=== PATIENT | female | born 1940 | race Caucasian/White ===

== ENCOUNTER 2016-11-29 07:00 | Day surgery (SDC) | payer OTHER ==
[~2016-11-29] VITALS: Ht 168.9 cm; Wt 80.3 kg
[~2016-11-29 07:00] MED LIST: ADVAIR 100/501 DISK IH; CALCIUM 600+D1 EACH PO; CALCIUM CITRAT1 EA14 PO; CALCIUM CITRAT200 MG PO; CALTRATE 600600 MG PO; CIPRO500 MG PO; COMPAZINE10 MG PO; CYCLOBENZAPRINE10 MG PO; DOXYCYCLINE HY100 MG PO; DYAZIDE, MA1 CAPSULE PO; ENOXAPARIN60 MG/0.6 SC; FISH OIL300 MG PO; FOLIC ACID1 MG PO; HYDROCHLOROTH12.5 M3 PO; HYDROCHLOROTHIA25 MG PO; KADIAN30 MG PO; MELATONIN10 M1 PO; MELATONIN10 M2 PO; METOCLOPRAMIDE H5 MG PO; MIRALAX255 GM PO; MORPHINE PAIN PUMP; MORPHINE S10 MG/5 ML PO; MORPHINE SULFAT15 M1 PO; MORPHINE SULFAT60 MG PO; MS CONTIN,ORAMO60 MG PO; NASONEX17 GM BOTH NARES; ONDANSETRON ODT8 MG PO; PACLITAXEL6 MG/1 ML IV; PAXIL10 MG PO; PAXIL20 MG PO; PAXIL30 MG PO; PERI-COLACE TA1 EACH PO; POTASSIUM GLUCO2 MEQ PO; PRILOSEC40 MG PO; PROAIR HFA8.5 GM IH; PROBIOTIC250 MG PO; PROCHLORPERAZIN10 MG PO; REGLAN10 MG PO; SENNA-TIME S T1 EACH PO; SENOKOT S,PE1 TABLET PO; SYMBICORT60 INHALA1 IH; SYMBICORT60 INHALAT IH; TUMERIC PO; VIBRAMYCIN100 MG PO; VITAMIN D-32000 UNI1 PO; VITAMIN D10000 UNIT PO; WARFARIN SODIU2.5 MG PO; WARFARIN SODIUM5 MG PO; ZYRTEC10 M3 PO; [UNRECOGNIZED DRUG - OTHER] EPID
[2016-11-29] MEDS ORDERED: CYCLOBENZAPRINE10 MG PO (07:19)
[2016-11-29] MEDS ORDERED: PROBIOTIC1 EAC1 PO (11:21)
== END 2016-11-29 09:12 | disposition home or self-care (01) ==
LOC: CATH 07:00
DX: I87.8 Other specified disorders of veins (principal); C34.90 Malignant neoplasm of unspecified part of unspecified bronchus or lung; E78.5 Hyperlipidemia, unspecified; M19.90 Unspecified osteoarthritis, unspecified site; Z87.891 Personal history of nicotine dependence; Z88.2 Allergy status to sulfonamides; Z88.8 Allergy status to other drugs, medicaments and biological substances; Z83.3 Family history of diabetes mellitus; Z82.49 Family history of ischemic heart disease and other diseases of the circulatory system; Z82.3 Family history of stroke; Z80.3 Family history of malignant neoplasm of breast; Z80.0 Family history of malignant neoplasm of digestive organs
CPT/HCPCS: C1751; C1894; J0690; J1644; J2250; J3010; S0020

== ENCOUNTER 2017-03-03 19:27 | Inpatient (IN) | payer OTHER ==
[~2017-03-03] VITALS: Ht 170.2 cm; Wt 80.0 kg
[~2017-03-03 19:27] MED LIST changes: +DELTASONE20 M1 PO; +PAROXETINE HCL30 MG PO; +PREDNISONE5 MG PO; +PROBIOTIC1 EAC1 PO
[2017-03-03 20:33] LABS: HEMATOCRIT 30.9 % (36.0-46.0); MCH 28.6 PG (29.0-34.0); MCHC 31.4 G/DL (30.0-36.0); MEAN PLAT.VOLUME 8.9 uM^3 (9.5-12.4); PLATELET COUNT 313 K/uL (156-360); RBC DIS.WIDTH-CV 24.8 % (11.8-14.6); RBC DIS.WIDTH-SD 81.5 % (39-53); RED BLOOD COUNT 3.39 M/uL (3.80-5.20)
[2017-03-03 20:36] LABS: CARBON DIOXIDE (BICARBONATE) 28.5 MEQ/L (20-31)
[2017-03-03 20:46] LABS: CHLORIDE 104 mEq/L (99-109); POTASSIUM 3.6 mEq/L (3.7-5.4); SODIUM 139 mEq/L (136-147)
[2017-03-03 20:47] LABS: GLUCOSE 299 mg/dL (70-99)
[2017-03-03 20:49] LABS: ANION GAP 12 MEQ/L (2-14)
[2017-03-03 20:51] LABS: GFR ESTIMATE (CALCULATED) > 59 mL/min/
[2017-03-03 20:52] LABS: UREA NITROGEN (BUN) 22 mg/dL (9-23)
[2017-03-03 21:00] LABS: TROP-I INTERPRETATION NEGATIVE; TROPONIN-I 0.02 ng/mL (0.0-0.30)
[2017-03-03 21:22] LABS: ABS NEUTROPHIL COUNT 7.4; ANISOCYTOSIS 2+; ATYPICAL LYMPHOCYTE 0.9 %; BAND NEUTROPHILS 4.6 % (0-8.0); EOSINOPHIL ABS CT 0; HYPOCHROMASIA 2+; INSTRUMENT ABS NEUTROPHIL CT 6.8 K/uL; LYMPHOCYTES 3.7 % (15.0-45.0); MCV 91.2 FL (83-99); MICROCYTOSIS 2+; MYELOCYTES 1.8 %; PLAT.SUFFICIENCY ADEQUATE; POLYCHROMASIA 1+; SEG.NEUTROPHILS 83.5 % (46.0-76.0); STOMATOCYTES 2+; WHITE BLOOD COUNT 8.4 K/uL (4.1-10.2)
[2017-03-03 21:54] LABS: INTER. NORMALIZED RATIO 1.6; PROTHROMBIN TIME 16.7 (9.2-11.2); PTT 37.1 (25-32)
[2017-03-03] MEDS ORDERED: MORPHINE CON20 MG/M1 PO (23:36)
[2017-03-03] MEDS ORDERED: VITAMIN D2000 UNIT PO (23:37)
[2017-03-03] MEDS ORDERED: FOLIC ACID0.8 MG PO (23:37)
[2017-03-03] MEDS ORDERED: NASONEX17 GM BOTH NARES (23:39)
[2017-03-03] MEDS ORDERED: PAROXETINE HCL20 MG PO (23:39)
[2017-03-03] MEDS ORDERED: MAXZIDE 37.5 M1 EACH PO (23:40)
[2017-03-03] MEDS ORDERED: OMEPRAZOLE40 M1 PO (23:40)
[2017-03-03] MEDS ORDERED: FISH OIL 1,2001 EAC4 PO (23:40)
[2017-03-03] MEDS ORDERED: SUPER LYSINE PO (23:41)
[2017-03-03] MEDS ORDERED: MAGIC MOUTHWASH PO (23:42)
[2017-03-03] MEDS ORDERED: GLY-OXIDE15 ML MM (23:42)
[2017-03-04 03:00] VITALS: BP 140/65
[2017-03-04 06:42] VITALS: BP 155/84
[2017-03-04 07:11] LABS: TROP-I INTERPRETATION NEGATIVE; TROPONIN-I 0.06 ng/mL (0.0-0.30)
[2017-03-04 12:46] LABS: INTER. NORMALIZED RATIO 1.6; PROTHROMBIN TIME 16.7 (9.2-11.2)
[2017-03-04 12:47] LABS: TROP-I INTERPRETATION NEGATIVE; TROPONIN-I 0.04 ng/mL (0.0-0.30)
[2017-03-04 15:04] VITALS: BP 182/98
[2017-03-04 15:13] VITALS: BP 142/76
[2017-03-04 22:35] VITALS: BP 142/65
[2017-03-05 06:15] LABS: HEMATOCRIT 32.5 % (36.0-46.0); MCH 28.2 PG (29.0-34.0); MCHC 30.2 G/DL (30.0-36.0); MCV 93.4 FL (83-99); MEAN PLAT.VOLUME 8.8 uM^3 (9.5-12.4); PLATELET COUNT 289 K/uL (156-360); RBC DIS.WIDTH-CV 24.7 % (11.8-14.6); RBC DIS.WIDTH-SD 84.4 % (39-53); RED BLOOD COUNT 3.48 M/uL (3.80-5.20); WHITE BLOOD COUNT 8.5 K/uL (4.1-10.2)
[2017-03-05 06:43] LABS: ANION GAP 8 MEQ/L (2-14); CHLORIDE 101 MEQ/L (99-109); GFR ESTIMATE (CALCULATED) > 59 mL/min/; SAMPLE HEMOLYSIS CHECK 0; SAMPLE ICTERIC CHECK 0; SAMPLE LIPEMIA CHECK 0; SODIUM 141 MEQ/L (136-147); UREA NITROGEN (BUN) 17 mg/dL (9-23)
[2017-03-05 06:46] LABS: PROTHROMBIN TIME 20.3 (9.2-11.2)
[2017-03-05 07:22] LABS: GLUCOSE 146 mg/dL (70-99)
[2017-03-05 09:27] VITALS: BP 136/74
[2017-03-05] MEDS ORDERED: PREDNISONE10 MG PO (11:01)
== END 2017-03-05 14:53 | disposition hospice, home (50) | DRG 180 ==
LOC: EME → EDBD 19:27 → EME 19:27 → EDOF 03-04 00:46 → 5EAST 03-04 02:18
PROVIDERS: Emergency Medicine; Hospitalist
DX: C34.12 Malignant neoplasm of upper lobe, left bronchus or lung (principal); J96.01 Acute respiratory failure with hypoxia; J98.11 Atelectasis; C79.51 Secondary malignant neoplasm of bone; C79.70 Secondary malignant neoplasm of unspecified adrenal gland; Z87.891 Personal history of nicotine dependence; Z99.81 Dependence on supplemental oxygen; R73.9 Hyperglycemia, unspecified; Z66 Do not resuscitate; Z51.5 Encounter for palliative care
CPT/HCPCS: 71010; 71275; 80048; 81003; 82803; 83880; 84484; 85025; 85027; 85610; 85730; 93005; 94640; 94640 76; 94760; 94799; 99202; 99281; 99285; J1650; J7512

== ENCOUNTER 2017-05-11 12:47 | Emergency (ER) | payer OTHER ==
[~2017-05-11] VITALS: Ht 167.6 cm; Wt 77.7 kg
[~2017-05-11 12:47] MED LIST changes: +FISH OIL 1,2001 EAC4 PO; +FOLIC ACID0.8 MG PO; +GLY-OXIDE15 ML MM; +MAGIC MOUTHWASH PO; +MAXZIDE 37.5 M1 EACH PO; +MORPHINE CON20 MG/M1 PO; +OMEPRAZOLE40 M1 PO; +PAROXETINE HCL20 MG PO; +PREDNISONE10 MG PO; +SUPER LYSINE PO; +VITAMIN D2000 UNIT PO
[2017-05-11 14:05] LABS: HEMATOCRIT 34.2 % (36.0-46.0); MCH 28.1 PG (29.0-34.0); MCHC 30.7 G/DL (30.0-36.0); MCV 91.4 FL (83-99); MEAN PLAT.VOLUME 9.4 uM^3 (9.5-12.4); PLATELET COUNT 300 K/uL (156-360); RBC DIS.WIDTH-CV 15.7 % (11.8-14.6); RBC DIS.WIDTH-SD 52.3 % (39-53); RED BLOOD COUNT 3.74 M/uL (3.80-5.20); WHITE BLOOD COUNT 14.7 K/uL (4.1-10.2)
[2017-05-11 14:17] LABS: CHLORIDE 94 mEq/L (99-109); POTASSIUM 4.5 mEq/L (3.7-5.4); SODIUM 136 mEq/L (136-147)
[2017-05-11 14:18] LABS: GLUCOSE 266 mg/dL (70-99)
[2017-05-11 14:20] LABS: ANION GAP 11 MEQ/L (2-14)
[2017-05-11 14:22] LABS: GFR ESTIMATE (CALCULATED) > 59 mL/min/
[2017-05-11 14:23] LABS: UREA NITROGEN (BUN) 19 mg/dL (9-23)
[2017-05-11 18:54] VITALS: BP 112/91
== END 2017-05-11 18:57 | disposition home or self-care (01) ==
LOC: EME 12:47
DX: C34.92 Malignant neoplasm of unspecified part of left bronchus or lung (principal); C78.7 Secondary malignant neoplasm of liver and intrahepatic bile duct; R04.2 Hemoptysis; Z85.3 Personal history of malignant neoplasm of breast; Z90.12 Acquired absence of left breast and nipple; Z79.01 Long term (current) use of anticoagulants; Z86.718 Personal history of other venous thrombosis and embolism; Z87.891 Personal history of nicotine dependence
CPT/HCPCS: 71020; 71275; 80048; 85027; 99281; 99285